=== PATIENT | female | born 1995 | race Caucasian/White ===

== ENCOUNTER 2018-06-11 07:14 | Day surgery (SDC) | payer OTHER ==
[2018-06-11] MEDS ORDERED: Lactated Ringers 1,000 ML IV SCH (07:30)
[2018-06-11] MEDS ORDERED: Propofol 200 MG/20 ML SDV IV ONE (08:30)
--- NOTE | 2018-06-11 09:00 | PCM.OPNOTE ---
- General Post-Op/Procedure Note Date of Surgery/Procedure: 06/11/18 Operative Procedure(s): c scope with random biopsy Findings: normal ileum normal colon Pre Op Diagnosis: hx of ibs, llq abd pain Post-Op Diagnosis: normal exam Anesthesia Technique: JOEY Primary Surgeon: Brady Patel Anesthesia Provider: Chris Carmona Pathology: random bx of terminal ileum and colon Complications: None Condition: Good Free Text/Narrative:: see dictation
[2018-06-11 09:49] VITALS: BP 129/79
--- NOTE | 2018-06-11 11:16 | OR ---
DATE OF OPERATION: 06/11/2018 SURGEON: Brady Patel MD PROCEDURE PERFORMED: Colonoscopy with cold forceps biopsy. PREOPERATIVE DIAGNOSIS: History of abdominal pain, thought to be secondary to irritable bowel syndrome with intermittent constipation and diarrhea. POSTOPERATIVE DIAGNOSIS: Normal exam. INDICATIONS FOR PROCEDURE: This is a 23-year-old white female who was referred with the above-mentioned complaints. She was offered and accepted colonoscopy as part of her workup. DESCRIPTION OF PROCEDURE: After an excellent IV sedation was administered, digital rectal exam was performed. No marked abnormality was noted. The flexible colonoscope was inserted and advanced to the cecum without difficulty. The prep was excellent. The following findings were noted: On termination of the terminal ileum, terminal ileum appeared normal. Several biopsies were taken. Ascending colon, unremarkable. Transverse colon, unremarkable. Descending colon, unremarkable. Sigmoid and rectum unremarkable. Biopsies were taken of all major sections of the intestine for microscopic review. The patient tolerated procedure well, was taken to recovery in good condition. /[id number] /[id number]
== END 2018-06-11 10:04 | disposition home or self-care (01) ==
LOC: FB.SDS 07:14
PROVIDERS: ATTEND Surgery
DX: K58.2 Mixed irritable bowel syndrome (principal); K63.89 Other specified diseases of intestine; F95.2 Tourette's disorder; F32.9 Major depressive disorder, single episode, unspecified; F41.1 Generalized anxiety disorder; Z79.899 Other long term (current) drug therapy; Z91.048 Other nonmedicinal substance allergy status
CPT/HCPCS: 45380; 81025; 88305; J2704; J7120